=== PATIENT | female | born 1995 | race Caucasian/White ===

== ENCOUNTER → 2017-07-16 | Outpatient (CLI) | payer OTHER ==
[2017-07-16 13:58] LABS: BASO % 0.4 % (0.0-1.0); EOS # 0.2 10*3/uL (0.0-0.4); EOS % 2.1 % (1.0-4.0); HEMATOCRIT 39.4 % (37.0-47.0); HEMOGLOBIN 12.7 g/dl (12.0-16.0); LYMPH # 2.5 10*3/uL (1.3-4.4); LYMPH % 27.7 % (27.0-41.0); MEAN CELL VOLUME 85.3 fl (81.0-99.0); MEAN CORPUSCULAR HGB 27.5 pg (27.0-31.0); MEAN CORPUSCULAR HGB CONC 32.2 g/dl (33.0-37.0); MEAN PLATELET VOLUME 10.1 fl (9.6-12.3); MONO # 0.4 10*3/uL (0.1-1.0); MONO % 3.9 % (3.0-9.0); NEUT % 65.4 % (47.0-73.0); PLATELET COUNT AUTOMATED 341 10*3/uL (130-400); RED BLOOD COUNT 4.62 10*6/uL (4.10-5.10); RED CELL DISTRI WIDTH 13.3 % (0-14.5); WHITE BLOOD COUNT 9.2 10*3/uL (4.8-10.8)
== END | disposition home or self-care (01) ==
LOC: LAB 12:13
PROVIDERS: Internal Medicine
DX: Z02.0 Encounter for examination for admission to educational institution (principal); R79.89 Other specified abnormal findings of blood chemistry

== ENCOUNTER 2018-03-22 18:23 | Emergency (ER) | payer OTHER ==
[2018-03-22 18:43] LABS: BILIRUBIN NEGATIVE (NEGATIVE); BLOOD NEGATIVE (NEGATIVE); CLARITY CLEAR (CLEAR); COLOR YELLOW (YELLOW); GLUCOSE NEGATIVE (NEGATIVE); KETONE NEGATIVE (NEGATIVE); LEUKO ESTERASE 1+ (NEGATIVE); NITRITE POSITIVE (NEGATIVE); UROBILINOGEN 0.2 E.U./dl (0.2-1.0)
[2018-03-22 18:51] LABS: BACTERIA 2+; RBC 0-2 rbc/hpf (0-2); WBC 21-30 wbc/hpf (0-5)
[2018-03-22] MEDS ORDERED: MACROBID100 M1 PO (19:01)
[2018-03-22] MEDS ORDERED: AMOXICILLIN500 M2 PO (19:10)
== END 2018-03-22 19:05 | disposition home or self-care (01) ==
LOC: ED 18:23
PROVIDERS: Emergency Medicine
DX: O23.43 Unspecified infection of urinary tract in pregnancy, third trimester (principal); Z88.2 Allergy status to sulfonamides; Z3A.28 28 weeks gestation of pregnancy

== ENCOUNTER → 2022-09-28 | Outpatient (CLI) | payer BC ==
[~2022-09-28] MED LIST: AMOXICILLIN500 M2 PO; MACROBID100 M1 PO
[2022-09-29 05:06] LABS: VARICELLA-ZOSTER IGG 512 index (Immune >165)
[2022-09-29 07:07] LABS: HEPATITIS B SURFACE AB Non Reactive (.)
[2022-10-02 09:07] LABS: TB1 Ag VALUE 0.07 IU/mL (.)
== END | disposition home or self-care (01) ==
LOC: LAB 12:51
PROVIDERS: ATTEND Family Medicine
DX: Z01.84 Encounter for antibody response examination (principal); Z11.1 Encounter for screening for respiratory tuberculosis

== ENCOUNTER 2023-06-15 18:17 | Emergency (ER) | payer BC ==
[~2023-06-15] VITALS: Ht 157.4 cm; Wt 106.6 kg
[2023-06-15 18:24] VITALS: BP 117/82
[2023-06-15 19:07] LABS: BASO % 0.4 % (0.0-1.0); EOS # 0.3 10*3/uL (0.0-0.4); EOS % 2.5 % (1.0-4.0); HEMATOCRIT 37.9 % (37.0-47.0); LYMPH # 3.3 10*3/uL (1.3-4.4); LYMPH % 28.9 % (27.0-41.0); MEAN CELL VOLUME 85.4 fl (81.0-99.0); MEAN CORPUSCULAR HGB 27.7 pg (27.0-31.0); MEAN CORPUSCULAR HGB CONC 32.5 g/dl (33.0-37.0); MEAN PLATELET VOLUME 9.2 fl (9.6-12.3); MONO # 0.4 10*3/uL (0.1-1.0); MONO % 3.7 % (3.0-9.0); NEUT # 7.3 10*3/uL (2.3-7.9); PLATELET COUNT AUTOMATED 364 10*3/uL (130-400); RED BLOOD COUNT 4.44 10*6/uL (4.10-5.10); RED CELL DISTRI WIDTH 12.8 % (0-14.5); WHITE BLOOD COUNT 11.4 10*3/uL (4.8-10.8)
[2023-06-15 19:24] LABS: ALKALINE PHOSPHATASE 64 U/L (46-116); BUN 9 mg/dl (9-23); CHLORIDE 105 mmol/L (98-107); POTASSIUM 3.5 mmol/L (3.4-5.1); SGPT/ALT 53 U/L (5-49); TOTAL PROTEIN 7.5 gm/dL (6.0-8.0)
[2023-06-15] MEDS ORDERED: SODIUM CHLORIDE 0.9% 100 ML BAG IV ONE (20:30)
[2023-06-15] MEDS ORDERED: IOHEXOL 350 MG/ML 100 ML VIAL IV ONE (20:30)
[2023-06-15] MEDS ORDERED: MG-AL HYDROXIDE/SIMETICONE 30 ML UDC PO STA (21:47)
[2023-06-15] MEDS ORDERED: Dicyclomine Hydrochloride 20 MG/10 ML OSYR PO STA (21:47)
[2023-06-15] MEDS ORDERED: Lidocaine Hydrochloride 15 ML UDC PO STA (21:47)
[2023-06-15] MEDS ORDERED: PROTONIX40 MG PO (22:15)
== END 2023-06-15 22:25 | disposition home or self-care (01) ==
LOC: ED 18:17
PROVIDERS: Internal Medicine
DX: R07.89 Other chest pain (principal); Z88.2 Allergy status to sulfonamides; Z79.2 Long term (current) use of antibiotics

== ENCOUNTER → 2023-07-08 | Outpatient (CLI) | payer BC ==
[~2023-07-08] MED LIST changes: +PROTONIX40 MG PO
[2023-07-11 04:07] LABS: TB1 Ag VALUE 0.06 IU/mL (.)
== END | disposition home or self-care (01) ==
LOC: LAB 15:45
PROVIDERS: ATTEND Family Medicine
DX: Z11.1 Encounter for screening for respiratory tuberculosis (principal)

== ENCOUNTER 2024-04-13 13:28 | Emergency (ER) | payer BC ==
[~2024-04-13] VITALS: Ht 157.4 cm; Wt 90.7 kg
[2024-04-13 13:42] VITALS: BP 103/48
[2024-04-13] MEDS ORDERED: TAMIFLU 75MG CA75 MG PO (15:35)
== END 2024-04-13 15:44 | disposition home or self-care (01) ==
LOC: ED 13:28
DX: R50.9 Fever, unspecified (principal); Z20.822 Contact with and (suspected) exposure to COVID-19; J34.89 Other specified disorders of nose and nasal sinuses; R05.9 Cough, unspecified; Z88.2 Allergy status to sulfonamides; Z88.8 Allergy status to other drugs, medicaments and biological substances

== ENCOUNTER 2024-07-01 18:01 | Emergency (ER) | payer BC ==
[~2024-07-01] VITALS: Ht 160 cm; Wt 90.7 kg
[~2024-07-01 18:01] MED LIST changes: +TAMIFLU 75MG CA75 MG PO
[2024-07-01 18:27] VITALS: BP 115/52
[2024-07-01] MEDS ORDERED: Ondansetron Hydrochloride 4 MG/2 ML VIAL IV ONE (18:55)
[2024-07-01] MEDS ORDERED: ACETAMINOPHEN 325 MG TAB PO ONE (18:55)
[2024-07-01] MEDS ORDERED: Ketorolac Tromethamine 30 MG/ML VIAL IV ONE (18:55)
[2024-07-01] MEDS ORDERED: SODIUM CHLORIDE 0.9% 1,000 ML IV ONE (18:55)
[2024-07-01 19:24] LABS: HEMATOCRIT 37.1 % (37.0-47.0); MEAN CELL VOLUME 85.3 fl (81.0-99.0); MEAN CORPUSCULAR HGB CONC 32.9 g/dl (33.0-37.0); MEAN PLATELET VOLUME 9.2 fl (9.6-12.3); PLATELET COUNT AUTOMATED 270 10*3/uL (130-400); RED BLOOD COUNT 4.35 10*6/uL (4.10-5.10); RED CELL DISTRI WIDTH 13.4 % (0-14.5); WHITE BLOOD COUNT 8.7 10*3/uL (4.8-10.8)
[2024-07-01 19:26] LABS: MANUAL DIFF REFLEX YES
[2024-07-01 19:45] LABS: ALKALINE PHOSPHATASE 50 U/L (46-116); BUN 13 mg/dl (9-23); CHLORIDE 103 mmol/L (98-107); LIPASE 42 U/L (12-53); POTASSIUM 3.4 mmol/L (3.4-5.1); SGPT/ALT 24 U/L (5-49)
[2024-07-01 19:49] LABS: BILIRUBIN 1+ (Negative); BLOOD Negative (Negative); CLARITY Clear (Clear); COLOR Dark Yellow (Yellow); GLUCOSE Negative (Negative); KETONE 1+ (Negative); LEUKO ESTERASE Trace (Negative); NITRITE Negative (Negative); SPECIFIC GRAVITY >= 1.030 (1.001-1.030)
[2024-07-01 20:02] LABS: TOTAL CELLS COUNTED 100 #CELLS
[2024-07-01 20:04] LABS: PLATELET SUFFICIENCY NORMAL (NORMAL); POLYCHROMASIA SLIGHT
[2024-07-01] MEDS ORDERED: MAGNESIUM OXIDE 400 MG TAB PO ONE (20:10)
[2024-07-01 20:15] LABS: BACTERIA 2+; MUCOUS 1+
[2024-07-01] MEDS ORDERED: cefTRIAXone Sodium 1 GM/10 ML SYR IV ONE (20:20)
[2024-07-01] MEDS ORDERED: CIPRO500 MG PO (22:01)
== END 2024-07-01 22:10 | disposition home or self-care (01) ==
LOC: ED 18:01
PROVIDERS: Nurse Practitioner Family
DX: A08.4 Viral intestinal infection, unspecified (principal); Z20.822 Contact with and (suspected) exposure to COVID-19; N39.0 Urinary tract infection, site not specified; R11.2 Nausea with vomiting, unspecified; Z88.2 Allergy status to sulfonamides; Z79.899 Other long term (current) drug therapy